=== PATIENT | female | born 1970 | race Native Hawaiian/Other Pacific Islander ===

== ENCOUNTER 2025-04-20 07:01 | Day surgery (SDC) | payer OTHER ==
[~2025-04-20] VITALS: Ht 162.6 cm; Wt 85.3 kg
[~2025-04-20 07:01] MED LIST: FERR325T19 PO; PANT40TA29 PO; SPIR50TA4 PO
[2025-04-20] MEDS: SCOPOLAMINE 1MG TRANSDERMAL PATCH TOP ONE (07:39)
[2025-04-20] MEDS: ACETAMINOPHEN 500 MG TAB PO ONE (07:39)
[2025-04-20] MEDS ORDERED: ONDANSETRON 4MG 2ML VIAL As Ordered ONE (08:22)
[2025-04-20] MEDS ORDERED: LIDOCAINE 2% 100 MG/5 ML SDV (FOR ANES.) As Ordered ONE (08:22)
[2025-04-20] MEDS ORDERED: dexAMETHasone 4 MG/ML 1 ML VIAL As Ordered ONE (08:22)
[2025-04-20] MEDS ORDERED: KETOROLAC 30 MG/ML 1 ML VIAL As Ordered ONE (08:22)
[2025-04-20] MEDS ORDERED: MIDAZOLAM INJ 2 MG/2 ML VIAL As Ordered ONE (08:23)
[2025-04-20] MEDS: LIDOCAINE 1% SDV 30 ML VIAL As Ordered ONE (09:12)
[2025-04-20] MEDS: SILVER NITRATE APPLICATOR (1 = QTY 10) As Ordered ONE (09:26)
[2025-04-20] MEDS ORDERED: LR 1,000 ML IV SCH (09:35)
[2025-04-20] MEDS ORDERED: MEPERIDINE 25 MG/ML 1 ML VIAL IV PRN (09:35)
[2025-04-20] MEDS: ONDANSETRON 4MG 2ML VIAL IV PRN (09:53)
[2025-04-20 10:52] VITALS: BP 129/68; TEMP 97.4; O2SAT 100
== END 2025-04-20 10:54 | disposition home or self-care (01) ==
LOC: M SDC 07:01
PROVIDERS: ATTEND General Practice
DX: N93.9 Abnormal uterine and vaginal bleeding, unspecified (principal); D64.9 Anemia, unspecified; G47.33 Obstructive sleep apnea (adult) (pediatric); Z79.899 Other long term (current) drug therapy; F17.210 Nicotine dependence, cigarettes, uncomplicated
CPT/HCPCS: 58558; 81025; 86850; 86900; 86901; 88305; 93005; J1100; J1885; J2250; J2405; J2765; J3010